=== PATIENT | male | born 1995 | race Caucasian/White ===

== ENCOUNTER 2025-07-17 18:15 | Emergency (ER) | payer OTHER, SELFPAY ==
[2025-07-17 18:40] VITALS: BP 118/74; PULSE 81; RESP 16; TEMP 36.9; O2SAT 100; BMI 22.2
== END 2025-07-18 00:27 | disposition left against medical advice (07) ==
PROVIDERS: Emergency Provider Emergency Medicine
CPT/HCPCS: 99281